=== PATIENT | male | born 1980 ===

== ENCOUNTER 2018-02-09 00:15 | Emergency (ER) | payer OTHER, BC ==
--- NOTE | 2018-02-09 00:34 | EDM.PDOC ---
ED HPI GENERAL MEDICAL PROBLEM - General Chief Complaint: Upper Extremity Injury/Pain Stated Complaint: partial amputation 3rd digit left hand Time Seen by Provider: 02/09/18 00:30 Source of Information: Reports: Patient History Limitations: Reports: No Limitations - History of Present Illness INITIAL COMMENTS - FREE TEXT/NARRATIVE: Patient is a 37-year-old who is seen in the emergency room after traumatic degloving of distal left third finger and compression injury to the fourth and third finger at this time patient lost a piece of the skin on the third finger which made this a compound fracture of the distal phalanx left third finger Onset: Today, Sudden Duration: Minutes: Location: Reports: Upper Extremity, Left Quality: Reports: Ache, Dull Severity: Moderate Improves with: Reports: Medication (Digital block) Worsens with: Reports: Movement Context: Reports: Trauma Associated Symptoms: Reports: No Other Symptoms Left Hand Pain Score (Numeric/FACES): 1 - Related Data Allergies Allergy/AdvReac Type Severity Reaction Status Date / Time No Known Allergies Allergy Verified 02/09/18 00:32 Home Meds: Home Meds . [No Known Home Meds] 02/09/18 [History] Review of Systems - Review of Systems Review Of Systems: See Below Constitutional: Reports: No Symptoms Eyes: Reports: No Symptoms Ears: Reports: No Symptoms Nose: Reports: No Symptoms Mouth/Throat: Reports: No Symptoms Respiratory: Reports: No Symptoms Cardiovascular: Reports: No Symptoms GI/Abdominal: Reports: No Symptoms Genitourinary: Reports: No Symptoms Musculoskeletal: Reports: No Symptoms Skin: Reports: No Symptoms Neurological: Reports: No Symptoms Psychiatric: Reports: No Symptoms ED EXAM, GENERAL - Physical Exam Exam: See Below Exam Limited By: No Limitations General Appearance: Alert, WD/WN, No Apparent Distress Eye Exam: Bilateral Eye: EOMI, PERRL Ears: Normal External Exam, Normal Canal, Hearing Grossly Normal, Normal TMs Ear Exam: Bilateral Ear: Auricle Normal, Canal Normal, TM normal Nose: Normal Inspection, Normal Mucosa, No Blood Throat/Mouth: Normal Inspection, Normal Lips, Normal Teeth, Normal Gums, Normal Oropharynx, Normal Voice, No Airway Compromise Head: Atraumatic, Normocephalic Neck: Normal Inspection, Supple, Non-Tender, Full Range of Motion Respiratory/Chest: No Respiratory Distress, Lungs Clear, Normal Breath Sounds, No Accessory Muscle Use, Chest Non-Tender Cardiovascular: Normal Peripheral Pulses, Regular Rate, Rhythm, No Edema, No Gallop, No JVD, No Murmur, No Rub GI/Abdominal: Normal Bowel Sounds, Soft, Non-Tender, No Organomegaly, No Distention, No Abnormal Bruit, No Mass (Male) Exam: Deferred Rectal (Males) Exam: Deferred Back Exam: Normal Inspection, Full Range of Motion, NT Extremities: Other (Compression injury to third and fourth distal phalanx left hand with partial degloving of the distal segment of the third finger' fingertip ) Neurological: Alert, Oriented, CN II-XII Intact, Normal Cognition, Normal Gait, Normal Reflexes, No Motor/Sensory Deficits Skin Exam: Warm, Dry, Intact, Normal Color, No Rash, Wound/Incision (Distal third and fourth finger) Lymphatic: No Adenopathy ED TRAUMA EXTREMITY PROCEDURES - Additional/Other Procedure(s) Other (Free Text) Procedure(s): At this time the patient was taken to the ER where it was decided to repair the distal traumatic degloving of the third finger left hand we went ahead and gave him a digital block was done digital block obtained anesthesia we went ahead and prepped the finger with Betadine and draped in the usual fashion at this time the nailbed was removed and exposure of the last of the degloving was being done there was a compound fracture says the bone was exposed and attempt was done to convert will what was left of the skin but there was not enough skin to cover the distal and at this time we called for possible transfer to a hand surgeon to see we save the digit. Procedure was terminated laceration was covered with Telfa and a pressure dressing with 2 inch Krystyna Course - Vital Signs Last Recorded V/S: Last Vital Signs Temp 99 F 02/09/18 00:33 Pulse 84 02/09/18 00:33 Resp 22 H 02/09/18 00:33 BP 147/83 H 02/09/18 00:33 Pulse Ox 100 02/09/18 00:33 - Orders/Labs/Meds Orders: Active Orders 24 hr Category Date Time Status Vaccines to be Administered [RC] PER UNIT ROUTINE Care 02/09/18 01:00 Active Hand Comp Min 3V Lt [CR] Stat Exams 02/09/18 00:36 Taken Sodium Chloride 0.9% [Normal Saline] 1,000 ml Med 02/09/18 00:45 Active IV ASDIRECTED Sodium Chloride 0.9% [Saline Flush] Med 02/09/18 00:41 Active 10 ml FLUSH ASDIRECTED PRN Saline Lock Insert [OM.PC] Stat Oth 02/09/18 00:41 Ordered Medication Orders Sodium Chloride (Normal Saline) 1,000 mls @ 150 mls/hr IV ASDIRECTED JOSSE Last Admin: 02/09/18 00:58 Dose: 150 mls/hr Sodium Chloride (Saline Flush) 10 ml FLUSH ASDIRECTED PRN PRN Reason: Keep Vein Open Last Admin: 02/09/18 00:58 Dose: 10 ml Labs: Laboratory Tests 02/09/18 02/09/18 Range/Units 00:40 00:40 WBC 9.9 (4.0-10.2) K/uL RBC 5.23 (4.33-5.41) M/uL Hgb 14.7 (13.1-16.8) g/dL Hct 43.3 (39.0-49.0) % MCV 82.8 L (84.0-98.0) fL MCH 28.1 L (28.2-33.3) pg MCHC 33.9 (31.7-36.0) g/dL RDW 13.7 (11.2-14.1) % Plt Count 257 (150-350) K/uL Neut % (Auto) 75.3 (45.0-80.0) % Lymph % (Auto) 18.6 (10.0-50.0) % [place] % (Auto) 4.5 (2.0-14.0) % Eos % (Auto) 1.3 (0.0-5.0) % Baso % (Auto) 0.3 (0.0-2.0) % Neut # (Auto) 7.48 H (1.40-7.00) K/uL Lymph # (Auto) 1.85 (0.50-3.50) K/uL [place] # (Auto) 0.45 (0.00-1.00) K/uL Eos # (Auto) 0.13 (0.00-0.50) K/uL Baso # (Auto) 0.03 (0.00-0.20) K/uL Sodium 143 (136-145) mmol/L Potassium 3.7 (3.5-5.1) mmol/L Chloride 105 (98-107) mmol/L Carbon Dioxide 28.0 (21.0-32.0) mmol/L BUN 14 (7-18) mg/dL Creatinine 0.82 (0.51-1.17) mg/dL Est Cr Clr Drug Dosing 152.90 mL/min Estimated GFR (MDRD) > 60 mL/min Glucose 106 (74-106) mg/dL Calcium 8.9 (8.5-10.1) mg/dL Meds: Medications Generic Name Dose Route Start Last Admin Trade Name Freq PRN Reason Stop Dose Admin Sodium Chloride 1,000 mls @ 150 mls/hr 02/09/18 00:45 02/09/18 00:58 Normal Saline IV 150 mls/hr ASDIRECTED JOSSE Administration Sodium Chloride 10 ml 02/09/18 00:41 02/09/18 00:58 Saline Flush FLUSH 10 ml ASDIRECTED PRN Administration Keep Vein Open Discontinued Medications Generic Name Dose Route Start Last Admin Trade Name Freq PRN Reason Stop Dose Admin Hydrocodone Bitart/Acetaminophen 1 tab 02/09/18 03:02 [place] 325-5 Mg PO 02/09/18 03:03 ONETIME ONE Hydrocodone Bitart/Acetaminophen 1 tab 02/09/18 03:04 [place] 325-5 Mg PO 02/09/18 03:05 ONETIME ONE Diphtheria/Tetanus/Acell Pertussis 0.5 ml 02/09/18 00:59 02/09/18 01:08 Adacel IM 02/09/18 01:00 0.5 ml .ONCE ONE Administration Hydromorphone HCl 1 mg 02/09/18 00:39 02/09/18 00:57 Dilaudid IVPUSH 02/09/18 00:40 1 mg ONETIME ONE Administration Piperacillin Sod/Tazobactam 100 mls @ 200 mls/hr 02/09/18 01:20 02/09/18 01: 30 Sod 3.375 gm/ Sodium Chloride IV 02/09/18 01:49 200 mls/hr ONETIME ONE Administration Lidocaine 10 ml 02/09/18 00:49 02/09/18 01:03 Xylocaine-Mpf 2% INJECT 02/09/18 00:50 Not Given ONETIME ONE Lidocaine HCl 10 ml 02/09/18 00:54 02/09/18 01:07 Xylocaine-Mpf 1% INJECT 02/09/18 00:55 10 ml ONETIME ONE Administration Departure - Departure Time of Disposition: 03:11 Disposition: Home, Self-Care 01 Condition: Good Clinical Impression: Open fracture of distal phalanx of digit of left hand - Discharge Information Referrals: Christiano Adams MD [Primary Care Provider] - Forms: ED Department Discharge Care Plan Goals: Spoke to Dr. Rivas orthopedics patient referred to hand surgeon at [facility] will see tomorrow patient will be contacted by [facility] in the morning Patien sent home on Keflex 500 mg every 6 hours plus hydrocodone 5/325 mg every 6 hours for pain prescriptions given +2 tablets given prior to departure. - My Orders Last 24 Hours: My Active Orders 02/09/18 00:36 Hand Comp Min 3V Lt [CR] Stat 02/09/18 00:41 Sodium Chloride 0.9% [Saline Flush] 10 ml FLUSH ASDIRECTED PRN Saline Lock Insert [OM.PC] Stat 02/09/18 00:45 Sodium Chloride 0.9% [Normal Saline] 1,000 ml IV ASDIRECTED 02/09/18 01:00 Vaccines to be Administered [RC] PER UNIT ROUTINE - Assessment/Plan Last 24 Hours: My Active Orders 02/09/18 00:36 Hand Comp Min 3V Lt [CR] Stat 02/09/18 00:41 Sodium Chloride 0.9% [Saline Flush] 10 ml FLUSH ASDIRECTED PRN Saline Lock Insert [OM.PC] Stat 02/09/18 00:45 Sodium Chloride 0.9% [Normal Saline] 1,000 ml IV ASDIRECTED 02/09/18 01:00 Vaccines to be Administered [RC] PER UNIT ROUTINE
[2018-02-09] MEDS ORDERED: HYDROmorphone 1 MG/ML Syringe IVPUSH ONE (00:39)
[2018-02-09] MEDS ORDERED: Sodium Chloride 0.9% 10 ML Syringe FLUSH PRN (00:41)
[2018-02-09] MEDS ORDERED: Sodium Chloride 0.9% 1,000 ML IV SCH (00:45)
[2018-02-09] MEDS ORDERED: Lidocaine 2% 5 ML SDV INJECT ONE (00:49)
[2018-02-09] MEDS ORDERED: Diphtheria,Pertussis(Acell),Tetanus Vaccine 0.5 ML SDV IM ONE (00:59)
[2018-02-09 01:02] LABS: CHLORIDE,CL 105 mmol/L (98-107); SODIUM,NA 143 mmol/L (136-145)
[2018-02-09] MEDS ORDERED: Piperacillin/Tazobactam 3.375 GM in Sodium Chloride 0.9% 100 ML IV ONE (01:20)
[2018-02-09] MEDS ORDERED: Acetaminophen/HYDROcodone 325-5 MG Tab PO ONE ×2 (03:02→03:04)
== END 2018-02-09 03:55 | disposition home or self-care (01) ==
LOC: LL.ED 00:15
DX: S62.635B Displaced fracture of distal phalanx of left ring finger, initial encounter for open fracture (principal); X58.XXXA Exposure to other specified factors, initial encounter
CPT/HCPCS: 36415; 64450; 73130-LT; 80048; 85025; 90471; 90715; 96361; 96365; 96375; 99284; A9270-GY; J1170; J2543; J7030; J7050